=== PATIENT | female | born 1985 | race Caucasian/White ===

== ENCOUNTER 2017-02-27 01:31 | Emergency (ER) | payer OTHER ==
[~2017-02-27] VITALS: Ht 162.5 cm; Wt 117.9 kg
[2017-02-27 02:05] LABS: BILIRUBIN NEGATIVE (NEGATIVE); BLOOD 1+ (NEGATIVE); CLARITY SL CLOUDY (CLEAR); COLOR YELLOW (YELLOW); GLUCOSE NEGATIVE (NEGATIVE); KETONE NEGATIVE (NEGATIVE); LEUKO ESTERASE 1+ (NEGATIVE); NITRITE NEGATIVE (NEGATIVE); PROTEIN NEGATIVE (NEGATIVE); UROBILINOGEN 0.2 E.U./dl (0.2-1.0)
[2017-02-27 02:11] LABS: EPITHELIAL CELLS 40-45
[2017-02-27 02:12] LABS: BACTERIA TRACE; URINE REFLEX COMMENT YES (NO)
[2017-02-27] MEDS ORDERED: NORCO 5-325 TA1 EACH PO (02:57)
[2017-02-27] MEDS ORDERED: KETOROLAC10 MG PO (02:57)
[2017-02-27] MEDS ORDERED: Orphenadrine C100 MG PO (02:57)
[2017-02-27] MEDS ORDERED: KEFLEX500 M1 PO (03:21)
== END 2017-02-27 03:34 | disposition home or self-care (01) ==
LOC: ED 01:31
PROVIDERS: Emergency Medicine Emergency Medical Services
DX: M54.41 Lumbago with sciatica, right side (principal); Z91.040 Latex allergy status